=== PATIENT | female | born 1940 | race Caucasian/White ===

== ENCOUNTER 2016-10-08 09:43 | Day surgery (SDC) | payer MEDICARE, BC ==
[~2016-10-08 09:43] MED LIST: RINGER'S SOLUTION,LACTATED 1,000 ML IV PRN; ceFAZolin SODIUM 1 GM VIAL IV PRN
[2016-10-08] MEDS ORDERED: RINGER'S SOLUTION,LACTATED 1,000 ML IV ONE (10:10)
[2016-10-08] MEDS ORDERED: BUPIVACAINE HCL/EPINEPHRINE 10 ML VIAL IJ ONE ×2 (10:40)
[2016-10-08] MEDS: ROPIVACAINE HCL/PF 40 MG in NORMAL SALINE 16 ML IJ PRN ×2 (10:45→11:03)
--- NOTE | 2016-10-08 11:23 | OR ---
Operative Report - Dictated Report Narrative: Date: 10/08/2016 Physician: Adán Neff M.D. Film Touch Up Inspector: Tulio Dodson PA-C Preoperative diagnosis: Right Knee medial meniscus tear Postoperative diagnosis: Right Knee medial meniscus tear, loose bodies Procedure: Right knee arthroscopy with partial medial meniscectomy, removal of loose bodies Anesthesia: MAC Plus local Complications: None Estimated blood loss: Minimal Tourniquet time: None Specimens: None Retained implants: None Drains: None Indications: Mrs. Veras Is a 75 year-old female who has been followed in my clinic with complaints of knee pain consistent with suspected medial joint pathology. Physical exam and diagnostic imaging were consistent with these complaints and concern for medial meniscus pathology. Conservative measures have failed including, but not limited to, passage of time, activity modification, medications, and injections. The risks, benefits, and alternatives were discussed in clinic. The risks being , bleeding, infection, blood clots, nerve, tendon, ligament, blood vessel injury, persistent pain, arthrosis, need for additional procedures, and persistent symptoms. Consent was obtained in the clinic. Procedure: After marking the correct extremity in the preoperative holding area, a timeout was performed in the operating room. IV antibiotics consisting of Ancef were administered prior to the procedure. A well-padded tourniquet was applied to the operative upper thigh. The leg was prepped and draped in a standard sterile fashion. 0.5% Marcaine with epinephrine was infused into the projected portal sites as well as the intra-articular space. A celena incision was made for inferior lateral portal. A blunt trocar and cannula was introduced into the knee. The suprapatellar pouch revealed and pathology. The medial patella facet showed grade 3 change. The lateral patella facet showed grade 3 change. The trochlea showed grade 2 change. The medial gutter revealed a flips medial meniscus tear. The medial joint space was then entered utilizing a lateral post and valgus stress. A spinal needle was utilized for guidance into placement of an anterior medial portal. This was placed just superior to the medial meniscus ensuring that we could reach the posterior aspect of the medial joint space. A celena incision was made in the site, and the probe was introduced to the knee. The medial joint space was examined, and the medial femoral condyle showed grade 3 change as well as multiple loose bodies. The medial tibial plateau showed grade 2 change. The medial meniscus had a large parrot-beak lipped meniscus fragment involving the posterior two thirds of the meniscus and approximately 75% of the depth. The notch was then examined, and the ACL was noted to be intact. The PCL was noted to be intact. The lateral joint space was then examined using a varus force in the figure 4 position. Lateral femoral condyle showed, arthrosis. Lateral tibial plateau showed, arthrosis. The lateral meniscus showed no tear. The lateral gutter showed or pathology. Having identified the surgical pathology, a series of biters and wiley were utilized in order to debride the posterior two thirds of the medial meniscus down the depth of approximately 75-80%. The loose bodies were also removed using the shaver. Once it was felt that we adequately addressed the pathology, the knee was thoroughly irrigated. The fluid was evacuated ensuring that we have removed all meniscal, chondral, and any other loose bodies. A final evaluation of the joint showed no additional pathology. The fluid was then evacuated of the knee, and the trocar and camera were removed from the joint. The wounds were closed with interrupted nylon after placing 20 mL of 0.2% ropivacaine into the joint. Dressings consisting of Xeroform, 4 x 4 , ABD, soft roll, and an David were applied. All sponge, needle, blade, and instrument counts were correct prior to closing the wounds. The patient was awoken and transferred to the postanesthesia care unit in stable condition.
[2016-10-08] MEDS ORDERED: RINGER'S SOLUTION,LACTATED 1,000 ML IV PRN (11:25)
[2016-10-08] MEDS ORDERED: oxyCODONE HCL/ACETAMINOPHEN 1 TAB TABLET PO PRN (11:26)
[2016-10-08] MEDS ORDERED: HYDROmorphone HCL 2 MG/ML VIAL IV PRN (11:27)
[2016-10-08 12:15] VITALS: BP 139/74
== END 2016-10-08 09:44 | disposition home or self-care (01) ==
LOC: AMB 09:43
PROVIDERS: ATTEND Orthopaedic Surgery
PROC: 0SBC4ZZ Excision of Right Knee Joint, Percutaneous Endoscopic Approach (ICD-10-PCS; principal; 2016-10-08 12:15)
DX: M23.221 Derangement of posterior horn of medial meniscus due to old tear or injury, right knee (principal); I10 Essential (primary) hypertension; E78.5 Hyperlipidemia, unspecified; K21.9 Gastro-esophageal reflux disease without esophagitis; D64.9 Anemia, unspecified; F32.9 Major depressive disorder, single episode, unspecified; Z68.32 Body mass index [BMI] 32.0-32.9, adult

== ENCOUNTER 2017-03-28 06:54 | Day surgery (SDC) | payer MEDICARE, BC ==
[~2017-03-28 06:54] MED LIST changes: -ceFAZolin SODIUM 1 GM VIAL IV PRN
[2017-03-28] MEDS ORDERED: RINGER'S SOLUTION,LACTATED 1,000 ML IV ONE (07:35)
[2017-03-28] MEDS ORDERED: RINGER'S SOLUTION,LACTATED 1,000 ML IV PRN (08:31)
[2017-03-28 11:16] VITALS: BP 151/78
--- NOTE | 2017-03-28 18:26 | OR ---
Operative Report - Dictated Report Narrative: OPERATIVE REPORT DATE OF OPERATION: 03/28/2017 PREOPERATIVE DIAGNOSIS: Family history of colon cancer POSTOPERATIVE DIAGNOSIS: Three 3mm polyps--one in the cecal apex, and 2 in the ascending colon. Diverticulosis OPERATION: Colonoscopy with hot biopsy forceps polypectomies 3 SURGEON: Huong Julien MD ANESTHESIA: ASTRID Izaguirre CRNA INDICATIONS FOR PROCEDURE: The patient is a 76-year-old female referred by Dr. Cotton. She had 2 maternal aunts with colon cancer and her mother had colon cancer at age 89. The patient had no polyps on exams in 2007 and 2010. She has alternating hard and loose bowel movements FINDINGS: 3 mm polyps--- one in the apex of the cecum, and 2 in the ascending colon (pathology pending). Diverticulosis NARRATIVE OF PROCEDURE: The patient was identified in the holding area, and prior to the administration of anesthetic, a multidisciplinary timeout was observed. With the patient in the left lateral position and after the administration of intravenous sedation, the perineum was inspected. There was no evidence of pilonidal disease or skin breakdown. The external appearance of the anus was normal. Sphincter tone was good. The flexible fiberoptic colonoscope was inserted into the rectum which was insufflated with air. The rectal mucosa and submucosal vascular pattern appeared normal, the prep was seen to be complete. The scope was advanced through the sigmoid colon, which contained scattered non-impacted noninflamed diverticular openings. The scope was advanced up the descending colon, and around the splenic flexure where the triangular haustral architecture of the transverse colon was seen. The scope was advanced across the transverse colon, and around the hepatic flexure into the ascending colon. There were 2 small polypoid areas which were biopsied and then thoroughly destroyed with electrocautery. Both sites were seen to be complete and hemostatic. The scope was advanced to the cecum, where the confluence of tenia and the ileocecal valve were identified. There was a very small area of polypoid change in the apex of the cecum. This was biopsied and then thoroughly destroyed with electrocautery. The site was seen to be complete and hemostatic. The mucosa at this level appeared otherwise normal. The scope was then slowly withdrawn in a circular fashion so that all aspects of colonic mucosa were inspected. The colon was somewhat capacious in character requiring the use of external manual compression and standard reduction maneuvers to reach the cecum. The haustral architecture appeared well preserved throughout with no evidence of external compression. The mucosa and submucosal vascular pattern appeared normal, specifically there was no gross evidence to suggest colitis or inflammatory bowel disease and no AV malformations were seen. The diverticulosis was mild to moderate in degree and confined primarily to the sigmoid colon. No additional polyps were encountered. The scope was gradually withdrawn to the level of the rectum. As much insufflated air as possible was removed. The scope was withdrawn from the patient and the procedure terminated. The patient tolerated the anesthetic and procedure well without complication and was transferred back to the ambulatory surgery area awake and in stable condition. She denied abdominal discomfort, was able to tolerate by mouth intake, and was up without assistance. I shared the operative findings with the patient and she was given copies of the photographs which appear in the medical record. She was given a single dose of hydralazine for elevated blood pressure. She felt somewhat dizzy for a while but then was better. She was discharged home with instructions not to engage in hazardous activity today, but may resume normal activity tomorrow, and advance diet as tolerated. She is to continue those medications as listed in the history and physical exam. I made arrangements to contact her with the biopsy reports and will make additional recommendations for treatment and follow-up based upon those results. Reviewed and electronically signed
== END 2017-03-28 06:55 | disposition home or self-care (01) ==
LOC: AMB 06:54
PROVIDERS: ATTEND Surgery
PROC: 0DBK8ZX Excision of Ascending Colon, Via Natural or Artificial Opening Endoscopic, Diagnostic (ICD-10-PCS; principal; 2017-03-28)
PROC: 0DBH8ZZ Excision of Cecum, Via Natural or Artificial Opening Endoscopic (ICD-10-PCS; 2017-03-28)
DX: K21.9 Gastro-esophageal reflux disease without esophagitis; M19.041 Primary osteoarthritis, right hand; M17.0 Bilateral primary osteoarthritis of knee; Z80.9 Family history of malignant neoplasm, unspecified; Z12.11 Encounter for screening for malignant neoplasm of colon; E78.5 Hyperlipidemia, unspecified; D12.0 Benign neoplasm of cecum; Z68.31 Body mass index [BMI] 31.0-31.9, adult; K63.5 Polyp of colon; D12.2 Benign neoplasm of ascending colon; M19.042 Primary osteoarthritis, left hand; I10 Essential (primary) hypertension